=== PATIENT | male | born 1990 | race Caucasian/White ===

== ENCOUNTER 2020-08-02 19:41 | Emergency (ER) | payer OTHER, SELFPAY ==
[2020-08-02 19:42] VITALS: BP 145/98; PULSE 124; RESP 24; TEMP 36.4; O2SAT 98; BMI 42.7
[2020-08-02 20:35] VITALS: BP 145/98; PULSE 124; RESP 24; TEMP 36.4; O2SAT 98
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
[2020-08-02 20:58] LABS: Absolute Lymphocyte Count 3.24 X10^3/uL (0.83-4.51); Basophil# 0.05 X10^3/uL; Basophil% 0.3 % (0-1); Eosinophil# 0.26 X10^3/uL; Eosinophils% 1.4 % (0-5); Hematocrit 46.9 % (40-54); Lymphocyte # 3.24 X10^3/ul (4.0); Mean Corp Hgb Conc 34.1 g/dL (32-36); Mean Corpuscular Hgb 30.2 pg (27.0-32.0); Mean Corpuscular Volume 88.7 fL (80-94); Mean Platelet Vol. 10.5 fl (6.2-12.0); Monocyte% 7.8 % (0-10); NRBC Flagged by Analyzer 0 % (0-5); Neutrophil # 13.01 X10^3/uL (2.7-7.7); Neutrophil % 72.1 % (47-70); Platelet Count 285 K/mm3 (150-450); RBC Distribution Width CV 14.7 % (11.6-14.6); RBC Distribution Width SD 47.3 fl (35.1-43.9); Red Blood Count 5.29 M/mm3 (4.6-6.2)
[2020-08-02 21:00] VITALS: BP 143/79; PULSE 109; RESP 15; TEMP 37.2; O2SAT 96
[2020-08-02] MEDS: Morphine 4 MG/ML Syringe IV (21:03)
[2020-08-02] MEDS: Cefazolin 1 GM/50 ML BAG IV (21:03)
[2020-08-02 21:10] LABS: AST(SGOT) 39 U/L (15-37); Alanine Aminotransfer ALT/SGPT 149 U/L (16-61); Albumin, Serum 3.8 g/dL (3.2-5.0); Alkaline Phosphatase 57 U/L (45-117); Anion Gap 6 (5-15); BUN 9 mg/dL (7-18); Calcium,Total 9.2 mg/dL (8.5-10.1); Chloride 106 mmol/L (98-107); Creatinine, Serum 0.75 mg/dL (0.70-1.30); EST Glomerular Filtration Rate 130 mL/min (>60); Est Glom Filt Rate - Afr Amer 157 mL/min (>60); Estimated Creatinine Clearance 131.14 ml/min; Globulin 3.7 g/dL (2.2-4.2); Glucose 81 mg/dL (74-106); Potassium 4.2 mmol/L (3.5-5.1); Protein, Total 7.5 g/dL (6.4-8.2); Sodium Level 139 mmol/L (136-145)
[2020-08-02 21:21] LABS: Lactic Acid 0.8 mmol/L (0.4-1.9)
[2020-08-02 22:30] VITALS: RESP 14
== END 2020-08-02 22:31 | disposition home or self-care (01) ==
PROVIDERS: Emergency Provider Emergency Medicine
DX: L03.116 Cellulitis of left lower limb (principal); F17.200 Nicotine dependence, unspecified, uncomplicated
CPT/HCPCS: 80053; 83605; 85025; 96365; 96375; 99283; A4216

== ENCOUNTER 2020-08-07 10:25 | Emergency (ER) | payer OTHER, SELFPAY ==
[2020-08-07 10:26] VITALS: BP 167/98; PULSE 80; RESP 16; TEMP 36.3; O2SAT 100; BMI 42.3
[2020-08-07 10:27] VITALS: BP 167/98; PULSE 80; RESP 16; TEMP 36.3; O2SAT 100
--- NOTE | 2020-08-07 10:42 | VDLE_ITS ---
Reason For Study: swelling Procedure LEFT This is a venous duplex using B-mode, color GSV is normal. flow and spectral Doppler. CFV is compressible, spontaneous, phasic, Exam performed portable in ED. competent, and demonstrates normal The study was technically difficult. augmentation. A preliminary report was called and/or faxed FV is compressible, spontaneous, phasic, to Dr. López @ 11:10 am. competent and demonstrates normal augmentation. POP V is compressible, spontaneous, phasic, competent and demonstrates normal augmentation. T/P Trunk is compressible. PTV is compressible. LT PerV is compressible. Interpretation Summary There is no evidence of left lower extremity deep vein thrombosis. Left great saphenous vein appears patent and compressible segmentally. Ordering Physician: Allie López Referring Physician: ELIZABETH PCP Performed By: Cookie Cano, SÁNCHEZ, RVT
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
[2020-08-07 11:18] LABS: Absolute Neutrophil Count 6.4 X10^3/uL (2.0-7.7); Basophil# 0.06 X10^3/uL; Basophil% 0.6 % (0-1); Eosinophil# 0.25 X10^3/uL; Eosinophils% 2.4 % (0-5); Hematocrit 47.1 % (40-54); Lymphocyte % 27.4 % (19-41); Mean Corp Hgb Conc 31.8 g/dL (32-36); Mean Corpuscular Hgb 28.8 pg (27.0-32.0); Mean Corpuscular Volume 90.4 fL (80-94); Mean Platelet Vol. 10.8 fl (6.2-12.0); Monocyte% 6.8 % (0-10); NRBC Flagged by Analyzer 0 % (0-5); Neutrophil # 6.37 X10^3/uL (2.7-7.7); Neutrophil % 62.3 % (47-70); POSITIVE COUNT YES; Platelet Count 293 K/mm3 (150-450); RBC Distribution Width CV 15.1 % (11.6-14.6); RBC Distribution Width SD 50.7 fl (35.1-43.9); Red Blood Count 5.21 M/mm3 (4.6-6.2); White Blood Count 10.2 K/mm3 (4.4-11.0)
[2020-08-07 11:27] VITALS: BP 129/63; PULSE 73; RESP 16; TEMP 36.3; O2SAT 98
[2020-08-07 11:30] LABS: Anion Gap 2 (5-15); BUN 13 mg/dL (7-18); BUN/Creat Ratio 17.9 RATIO (10-20); Calcium,Total 9.3 mg/dL (8.5-10.1); Chloride 111 mmol/L (98-107); Creatinine, Serum 0.73 mg/dL (0.70-1.30); EST Glomerular Filtration Rate 135 mL/min (>60); Est Glom Filt Rate - Afr Amer 163 mL/min (>60); Estimated Creatinine Clearance 139.59 ml/min; Glucose 80 mg/dL (74-106); Sodium Level 139 mmol/L (136-145)
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
[2020-08-07 12:00] VITALS: BP 121/77; BP 125/77; PULSE 73; PULSE 78; RESP 16; TEMP 36.3; O2SAT 98
--- NOTE | 2020-08-07 12:55 | ED.DEP ---
ED Disposition - Plan for ED Patient: Instructions: Cellulitis Prescriptions: Smz/Tmp Ds [Bactrim Ds] 1 tab PO BID #14 tab Prescription Printed Referrals: Care Physician,No Primary [Primary Care Provider] - Frank Bañuelos MD [STAFF PHYSICIAN] - 3-5 Days
[2020-08-07 14:37] LABS: M R Staph aureus DNA By PCR Negative (Negative); Probe Check PASS; Specimen Processing Control PASS; Staph aureus DNA By PCR POSITIVE (Negative)
[2020-08-07 15:16] VITALS: BP 124/77; PULSE 74; RESP 16; O2SAT 98
== END 2020-08-07 15:17 | disposition home or self-care (01) ==
PROVIDERS: Emergency Provider Emergency Medicine
DX: L03.116 Cellulitis of left lower limb (principal); F17.200 Nicotine dependence, unspecified, uncomplicated
CPT/HCPCS: 73701; 80048; 83605; 85025; 87070; 87077; 87186; 87205; 87640; 93971; 96365; 96366; 96367; 99284; J7040; J7050; Q9967; A4216; J0295